=== PATIENT | male | born 1960 | race Caucasian/White ===

== ENCOUNTER 2020-12-23 10:48 | Emergency (ER) | payer BC ==
[~2020-12-23] VITALS: Ht 188 cm; Wt 99.8 kg
--- NOTE | 2020-12-23 11:00 | NUR ---
Patient came in to the er c/o r leg pain, redness, and swelling x 2 days 10/10 pain scale. On room air, breaething evenly and unlabored. Kept comfortable, will continue to monitor accordingly.
[2020-12-23] MEDS ORDERED: SULF1TAB48 PO (11:08)
[2020-12-23] MEDS ORDERED: CEPH500C2 PO (11:08)
[2020-12-23] MEDS: SILVER SULFADIAZINE CREAM 25 GM TUBE TP ONE (11:11)
[2020-12-23] MEDS ORDERED: SILVER SULFADIAZINE CREAM 25 GM TUBE ONE (11:11)
[2020-12-23] MEDS ORDERED: TDAP [DIPH/PERTUSSIS/TET] 0.5 ML VIAL IM ONE (11:12)
[2020-12-23] MEDS ORDERED: AMLO1CAP PO (11:15)
[2020-12-23] MEDS ORDERED: CARV6.252 PO (11:15)
[2020-12-23] MEDS: TDAP [DIPH/PERTUSSIS/TET] 0.5 ML VIAL IM ONE (11:15)
[2020-12-23] MEDS ORDERED: OMEG-167 PO (11:15)
[2020-12-23] MEDS ORDERED: FLUO20CA42 PO (11:15)
[2020-12-23] MEDS ORDERED: EMTR1TAB17 PO (11:15)
[2020-12-23 11:47] VITALS: BP 131/56
--- NOTE | 2020-12-23 11:47 | NUR ---
Patient discharged to home in stable condition. Written and verbal after care instructions given. Patient verbalizes understanding of instruction.
[2020-12-30] MEDS ORDERED: DOXY100C2 PO (14:01)
[2020-12-30] MEDS ORDERED: AMOX-430 PO (14:01)
== END 2020-12-23 11:47 | disposition home or self-care (01) ==
LOC: ER 10:54
DX: T81.49XA Infection following a procedure, other surgical site, initial encounter (principal); M79.604 Pain in right leg; R22.41 Localized swelling, mass and lump, right lower limb; I10 Essential (primary) hypertension; E78.5 Hyperlipidemia, unspecified; F32.9 Major depressive disorder, single episode, unspecified
CPT/HCPCS: 73590-TC; 87070-TC; 90715

== ENCOUNTER 2020-12-24 09:45 | Inpatient (IN) | payer BC ==
[~2020-12-24] VITALS: Ht 188 cm; Wt 99.8 kg
[~2020-12-24 09:45] MED LIST: AMLO1CAP PO; CARV6.252 PO; CEPH500C2 PO; EMTR1TAB17 PO; FLUO20CA42 PO; OMEG-167 PO; SULF1TAB48 PO
--- NOTE | 2020-12-24 09:50 | NUR ---
AMBULATED TO BED 1 WITH CRUTCHES FOR MD MEDINA
--- NOTE | 2020-12-24 09:51 | NUR ---
BIB SELF W CRUTCHES C/O WORSENING R LOWER LEG LACERATION & REDNESS X4 DAYS. PT CAME IN YESTERDAY AND THE PAIN AND REDNESS HAVE WORSENED. PAIN IS 4/10 AT REST AND 10/10 ON AMBULATION. PT CAME TO THE ER AND STARTED BACTRIM AND KEFLEX YESTERDAY. DENIES FEVER, N/V. A&OX4, AMBULATORY W CRUTCHES, REDNESS FROM R ANKLE TO BELOW THE KNEE, WORSE IN THE MIDDLE OF THE LEG. R LEG IS WARM.
--- NOTE | 2020-12-24 09:57 | NUR ---
DR DUVAL AT BEDSIDE
--- NOTE | 2020-12-24 10:15 | NUR ---
BLOOD SAMPLE OBTAINED AND SENT TO LAB
--- NOTE | 2020-12-24 10:16 | NUR ---
radiology at bedside
--- NOTE | 2020-12-24 10:19 | NUR ---
DIRECTOR CLINICAL PHARMACOLOGY AT BEDSIDE
--- NOTE | 2020-12-24 10:25 | NUR ---
covid swab done and sent to the lab
[2020-12-24] MEDS ORDERED: ONDANSETRON HCL/PF 4 MG/2 ML VIAL ONE (10:26)
[2020-12-24] MEDS ORDERED: MORPHINE SULFATE INJ 4 MG/ML DISP.SYRIN ONE (10:27)
[2020-12-24] MEDS ORDERED: CEFTRIAXONE 1 G in IV D5W 50 ML IV ONE (10:30)
[2020-12-24] MEDS ORDERED: ONDANSETRON HCL/PF 4 MG/2 ML VIAL IV ONE (10:30)
[2020-12-24] MEDS ORDERED: MORPHINE SULFATE INJ 2 MG/ML DISP.SYRIN IV ONE (10:30)
[2020-12-24] MEDS ORDERED: VANCOMYCIN 1 GM in IV D5W 250 ML IV ONE (10:30)
[2020-12-24 10:37] LABS: BASOPHILS # (AUTO) 0.1 K/uL (0.0-0.2); BASOPHILS % (AUTO) 0.3 % (0.0-2.0); EOSINOPHILS % (AUTO) 0.2 % (0.0-6.0); HEMATOCRIT 40 % (39-51); HEMOGLOBIN 13.8 g/dL (13.5-17.5); LYMPHOCYTES # (AUTO) 0.8 K/uL (0.8-4.8); LYMPHOCYTES % (AUTO) 3.4 % (20.0-44.0); MEAN CORPUSCULAR HGB CONC 34 g/dl (31.0-36.0); MEAN CORPUSCULAR VOLUME 93 fL (80-96); MONOCYTES # (AUTO) 1.3 K/uL (0.1-1.30); MONOCYTES % (AUTO) 5.3 % (2.0-12.0); NEUTROPHILS # (AUTO) 22.1 K/uL (1.8-8.9); NEUTROPHILS % (AUTO) 90.8 % (43.0-81.0); PLATELET COUNT (AUTO) 157 K/uL (150-450); RED BLOOD CELL COUNT(AUTO) 4.31 MIL/uL (4.5-6.0); WHITE BLOOD COUNT (AUTO) 24.3 K/uL (4.3-11.0)
[2020-12-24 11:00] LABS: CALCIUM, SERUM 8.8 mg/dL (8.5-10.1); CREATININE 1.9 mg/dL (0.6-1.3)
--- NOTE | 2020-12-24 11:49 | NUR ---
ULTRASOUND BEING DONE AT BEDSIDE
--- NOTE | 2020-12-24 12:29 | NUR ---
ROOM 306-2 GUY MORAN
--- NOTE | 2020-12-24 13:38 | NUR ---
report given to Samara TOVAR for archie.
[2020-12-24 13:45] VITALS: BP 103/64
--- NOTE | 2020-12-24 13:45 | NUR ---
MS MAIL WEIGHER NOTE PT TRANSPORTED VIA GURNEY TO UNIT AT THIS TIME. PT ADMITTED TO [facility] UNIT FROM ER UNDER SOLAR PHOTOVOLTAIC CREW LEAD ERIC FOR ADMITTING DX OF CELLULITIS. A/O X4. PT IS STABLE ON ROOM AIR WITH NO SOB OR S/S OF RESPIRATORY DISTRESS NOTED. PT HAS NO C/O PAIN OR DISCOMFORT AT THIS TIME. IV ACCESS IS IN RAC #20, INTACT AND PATENT. PHOTO TAKEN OF RIGHT LOWER LEG ERYTHEMA AND SWELLING AND FILED IN CHART. PT ORIENTED TO STAFF, ROOM, AND UNIT. SAFETY PRECAUTIONS MAINTAINED. BED IN LOWEST LOCKED POSITION, HOB ELEVATED, SIDE RAILS UP X2. CALL LIGHT AND TABLE WITHIN REACH. WILL CONTINUE TO MONITOR.
[2020-12-24 14:05] VITALS: BP 105/63
[2020-12-24] MEDS ORDERED: MAG HYDROX/AL HYDROX/SIMETH 30 ML UDC PO PRN (14:30)
[2020-12-24] MEDS ORDERED: ZOLPIDEM TARTRATE 5 MG TABLET PO PRN (14:30)
[2020-12-24] MEDS ORDERED: ONDANSETRON HCL/PF 4 MG/2 ML VIAL IVP PRN (14:30)
[2020-12-24] MEDS ORDERED: MAGNESIUM HYDROXIDE 30 ML UDC PO PRN (14:30)
[2020-12-24] MEDS ORDERED: ACETAMINOPHEN 325 MG TABLET PO PRN (14:30)
[2020-12-24] MEDS ORDERED: Z GUARD REMEDY 2 OZ OINT TP PRN (14:30)
[2020-12-24] MEDS: IV NS 0.9% 1,000 ML IV PRN (15:54)
[2020-12-24 16:00] VITALS: BP 103/64
[2020-12-24 16:52] LABS: BAND % (MANUAL) 6 % (0.0-5.0); EOSINOPHILS % (MANUAL) 1 % (0-4); LYMPHOCYTES % (MANUAL) 6 % (16-48); MONOCYTES % (MANUAL) 3 % (0-11.0); NEUTROPHILS % (MANUAL) 84 (42-76)
[2020-12-24] MEDS ORDERED: Medication Not On Formulary EA (Omega-3 Fatty Acids/Fish Oil (Fish Oil 1,000 Mg Softgel) PO SCH (17:00)
[2020-12-24] MEDS: CARVEDILOL 6.25 MG TABLET PO SCH (17:00)
--- NOTE | 2020-12-24 18:00 | NUR ---
RN NOTE URINE SPECIMEN COLLECTED AND PLACED IN REFRIGERATOR. NOTIFIED LAB OF ASSOCIATE DIRECTOR OF BIOSTATISTICS.
[2020-12-24] MEDS ORDERED: POTASSIUM CHLORIDE 20 MEQ TAB.PRT.SR PO ONE (18:30)
--- NOTE | 2020-12-24 18:38 | NUR ---
MS RN CLOSING NOTE PT IS AWAKE IN BED. A/O X4. PT IS STABLE ON ROOM AIR WITH NO SOB OR S/S OF RESPIRATORY DISTRESS NOTED. PT HAS NO C/O PAIN OR DISCOMFORT AT THIS TIME. IV ACCESS IS IN RAC #20 INFUSING NS AT 100 ML/HR, INTACT AND PATENT. ALL NEEDS HAVE BEEN MET. SAFETY PRECAUTIONS MAINTAINED AT ALL TIMES. BED IN LOWEST LOCKED POSITION, HOB ELEVATED, SIDE RAILS UP X2. CALL LIGHT AND TABLE WITHIN REACH. WILL ENDORSE TO ONCOMING NURSE FOR JAREK.
--- NOTE | 2020-12-24 19:00 | NUR ---
MS RN OPENING NOTE RECEIVED PT IN BED, RESTING. A/O X4. PT IS ON ROOM AIR, NO SOB OR RESPIRATORY DISTRESS NOTED, NO C/O PAIN AT THIS TIME. RESPIRATIONS EVEN AND UNLABORED. IV ACCESS NOTED IN RIGHT AC G#20 INTACT, PATENT AND FLUSHING WELL, NS INFUSING AT 100ML/HR. FALL AND SAFETY MEASURES IN PLACE AND MAINTAINED AT ALL TIMES. BED ALARM, BED IN LOW AND LOCKED POSITION, HOB ELEVATED TO SEMI FOWLERS POSITION, CALL LIGHT AND TABLE WITHIN REACH. SIDE RAILS UP X2. WILL CONTINUE WITH PLAN OF CARE.
[2020-12-24 20:01] VITALS: BP 108/69
[2020-12-25] MEDS: HYDROCODONE/APAP 5/325MG TABLET PO PRN (01:20)
[2020-12-25 03:36] LABS: BILIRUBIN,URINE SMALL (NEGATIVE); COLOR,URINE DARK YELLOW (YELLOW); LEUKOCYTE ESTERASE ,URINE NEGATIVE (NEGATIVE); NITRITE, URINE NEGATIVE (NEGATIVE); PROTEIN,URINE 30 mg/dl (NEGATIVE); UGLUCOSE NEGATIVE (NEGATIVE); UROBILINOGEN,URINE 0.2 EU/dL (0.2)
[2020-12-25 04:00] LABS: RBC,URINE 0-2 /HPF (0-2); WBC,URINE 0-2 /HPF (0-3)
[2020-12-25 04:01] LABS: BACTERIA,URINE Few /HPF (None Seen); SQUAMOUS EPITHELIAL CELL,UR Few /HPF (None Seen); URINE AMORPHOUS URATE Many /HPF (None Seen)
[2020-12-25] MEDS ORDERED: VANCOMYCIN 1.25 GM in IV D5W 250 ML IV SCH (05:00)
--- NOTE | 2020-12-25 06:29 | NUR ---
MS RN CLOSING NOTE PT RESTING IN BED COMFORTABLY AT THIS TIME, EASY TO AROUSE. PT REMAINED STABLE THROUGHOUT SHIFT.ALL NEEDS, MEDICATIONS, AND CARE ADMINISTERED ANTICIPATED PER ORDER. SAFETY PRECAUTIONS IN PLACE AND MAINTAINED AT ALL TIMES. BED IN LOWEST, LOCKED POSITION, HOB ELEVATED, SIDE RAILS UP X2. CALL LIGHT AND TABLE WITHIN REACH. WILL ENDORSE TO ONCOMING NURSE FOR JAREK.
[2020-12-25 06:34] LABS: BASOPHILS % (AUTO) 0.1 % (0.0-2.0); EOSINOPHILS % (AUTO) 0.2 % (0.0-6.0); HEMATOCRIT 37 % (39-51); HEMOGLOBIN 12.6 g/dL (13.5-17.5); LYMPHOCYTES # (AUTO) 1.1 K/uL (0.8-4.8); LYMPHOCYTES % (AUTO) 6.9 % (20.0-44.0); MEAN CORPUSCULAR HGB CONC 34 g/dl (31.0-36.0); MEAN CORPUSCULAR VOLUME 95 fL (80-96); MONOCYTES # (AUTO) 1.5 K/uL (0.1-1.30); MONOCYTES % (AUTO) 9.4 % (2.0-12.0); NEUTROPHILS # (AUTO) 13.6 K/uL (1.8-8.9); NEUTROPHILS % (AUTO) 83.4 % (43.0-81.0); PLATELET COUNT (AUTO) 144 K/uL (150-450); RED BLOOD CELL COUNT(AUTO) 3.89 MIL/uL (4.5-6.0); WHITE BLOOD COUNT (AUTO) 16.3 K/uL (4.3-11.0)
[2020-12-25 06:38] LABS: CALCIUM, SERUM 8.7 mg/dL (8.5-10.1); CREATININE 1.2 mg/dL (0.6-1.3); MAGNESIUM 1.9 mg/dL (1.8-2.4); POTASSIUM 3.3 mmol/L (3.5-5.1)
--- NOTE | 2020-12-25 07:34 | NUR ---
MS RN OPENING NOTE RECEIVED PT IN BED, RESTING. A/O X4. PT IS ON ROOM AIR, I NO APPARENT RESPIRATORY DISTRESS NOTED, BREATHING EVEN AND UNLABORED. NO C/O PAIN AT THIS TIME. RESPIRATIONS EVEN AND UNLABORED. IV ACCESS NOTED IN RIGHT AC G#20 INTACT, PATENT AND FLUSHING WELL, NS INFUSING WELL AT 100ML/HR. FALL AND SAFETY MEASURES IN PLACE AND MAINTAINED AT ALL TIMES. BED ALARM, BED IN LOW AND LOCKED POSITION, HOB ELEVATED TO SEMI FOWLERS POSITION, CALL LIGHT AND TABLE WITHIN REACH. SIDE RAILS UP X2. WILL CONTINUE WITH PLAN OF CARE.
[2020-12-25 08:00] VITALS: BP 120/78
[2020-12-25] MEDS: CARVEDILOL 6.25 MG TABLET PO SCH ×2 (08:34→17:00)
[2020-12-25] MEDS: AMLODIPINE BESYLATE 10 MG TABLET PO SCH (08:34)
[2020-12-25] MEDS: FLUOXETINE HCL 20 MG CAPSULE PO SCH (08:34)
[2020-12-25] MEDS: BENAZEPRIL HCL 20 MG TABLET PO SCH (08:35)
[2020-12-25] MEDS ORDERED: Medication Not On Formulary EA (Amlodipine Besylate/Benazepril (Lotrel 10-20 Mg Capsule) PO SCH (09:00)
[2020-12-25] MEDS ORDERED: Medication Not On Formulary EA (Emtricitabine/Tenofov Alafenam (Descovy 200-25 mg Tablet PO SCH (09:00)
[2020-12-25] MEDS ORDERED: POTASSIUM CHLORIDE 20 MEQ TAB.PRT.SR PO SCH (10:30)
[2020-12-25] MEDS: MORPHINE SULFATE INJ 2 MG/ML DISP.SYRIN IV PRN ×2 (11:36→20:29)
[2020-12-25] MEDS: IV NS 0.9% 1,000 ML IV PRN (15:56)
[2020-12-25 16:00] VITALS: BP 94/60
[2020-12-25] MEDS: VANCOMYCIN 1.25 GM in IV D5W 250 ML IV SCH (18:17)
--- NOTE | 2020-12-25 18:36 | NUR ---
MS RN CLOSING NOTE RECEIVED PT IN BED, RESTING. A/O X4. PT IS ON ROOM AIR, IN NO APPARENT RESPIRATORY DISTRESS NOTED, BREATHING EVEN AND UNLABORED. NO C/O PAIN AT THIS TIME. RESPIRATIONS EVEN AND UNLABORED. IV ACCESS NOTED IN RIGHT AC G#20 INTACT, PATENT AND FLUSHING WELL, NS INFUSING WELL AT 100ML/HR. FALL AND SAFETY MEASURES IN PLACE AND MAINTAINED AT ALL TIMES. BED ALARM, BED IN LOW AND LOCKED POSITION, HOB ELEVATED TO SEMI FOWLERS POSITION, CALL LIGHT AND TABLE WITHIN REACH. SIDE RAILS UP X2. WILL ENDORSED PT. TO GRADER TENDER NURSE.
--- NOTE | 2020-12-25 19:15 | NUR ---
MS RN NOTES RECEIVED ON LAYING ON BED,BREATHING REGULAR,NOT IN ANY FORM DISTRESS,NOTED REDNESS ON RIGHT LOWER LEG,WARM TO THE TOUCH,ELEVATED ON 2 PILLOWS.PAIN TOLERABLE AT THE MOMENT,AMBULATE TO THE TOILET WITH WALKER,PRESENT IVF NS AT 100ML/HR RATE INFUSING WELL ON RIGHT AC SALINE LOCK.CALL LIGHT IN REACH,NEEDS ANTICIPATED.
[2020-12-25 20:00] VITALS: BP 111/63
--- NOTE | 2020-12-25 20:29 | NUR ---
MS RN NOTES PAIN MANAGEMENT C/O PAIN 8/10 ON RIGHT LOWER LEG,MORPHINE 2MG IV GIVEN ORDERED.
--- NOTE | 2020-12-25 21:00 | NUR ---
MS RN NOTES REFUSED IVF THIS TIME,SAYS IT KEEPS HIM GOING BACK AND FORT TO THE RESTROOM.
[2020-12-26 06:19] LABS: BASOPHILS % (AUTO) 0.2 % (0.0-2.0); EOSINOPHILS % (AUTO) 0.6 % (0.0-6.0); HEMATOCRIT 36 % (39-51); LYMPHOCYTES # (AUTO) 1.3 K/uL (0.8-4.8); LYMPHOCYTES % (AUTO) 10.3 % (20.0-44.0); MEAN CORPUSCULAR HGB CONC 34 g/dl (31.0-36.0); MEAN CORPUSCULAR VOLUME 95 fL (80-96); MONOCYTES # (AUTO) 1.6 K/uL (0.1-1.30); NEUTROPHILS # (AUTO) 9.5 K/uL (1.8-8.9); NEUTROPHILS % (AUTO) 75.9 % (43.0-81.0); PLATELET COUNT (AUTO) 164 K/uL (150-450); RED BLOOD CELL COUNT(AUTO) 3.76 MIL/uL (4.5-6.0); WHITE BLOOD COUNT (AUTO) 12.5 K/uL (4.3-11.0)
[2020-12-26 06:56] LABS: CALCIUM, SERUM 8.4 mg/dL (8.5-10.1); MAGNESIUM 1.8 mg/dL (1.8-2.4); POTASSIUM 3.1 mmol/L (3.5-5.1)
--- NOTE | 2020-12-26 07:21 | NUR ---
MS RN NOTES VANCOMYCIN TROUGH 8,WILL ADMINISTER DOSE
[2020-12-26] MEDS: VANCOMYCIN 1.25 GM in IV D5W 250 ML IV SCH (07:24)
--- NOTE | 2020-12-26 07:41 | NUR ---
MS RN OPENING NOTES RECEIVED PATIENT AWAKE IN BED, ALERT AND ORIENTED X 4. NO SOB. NO S/S OF DISTRESSED NOTED. BREATHING IS EVEN AND UNLABORED. IV ACCESS RAC#20 PATENT AND INTACT. SAFETY MEASURES IN PLACE WITH BED LOCKED AT LOWEST POSITION AND SIDE RAILS UP X 2. CALL LIGHT WITHIN REACH. WILL CONTINUE TO MONITOR THROUGHOUT SHIFT.
[2020-12-26 08:00] VITALS: BP 114/84
[2020-12-26] MEDS: AMLODIPINE BESYLATE 10 MG TABLET PO SCH (08:32)
[2020-12-26] MEDS: BENAZEPRIL HCL 20 MG TABLET PO SCH (08:33)
[2020-12-26] MEDS: CARVEDILOL 6.25 MG TABLET PO SCH ×3 (08:33→16:16)
[2020-12-26] MEDS: FLUOXETINE HCL 20 MG CAPSULE PO SCH (08:33)
[2020-12-26] MEDS: POTASSIUM CHLORIDE 20 MEQ TAB.PRT.SR PO SCH ×2 (10:42→11:29)
[2020-12-26] MEDS: HYDROCODONE/APAP 5/325MG TABLET PO PRN ×4 (11:43→20:25)
[2020-12-26] MEDS ORDERED: POTASSIUM CHLORIDE 20 MEQ TAB.PRT.SR PO ONE ×2 (12:30→14:00)
--- NOTE | 2020-12-26 13:54 | NUR ---
PILE FABRIC KNITTER PATIENT CURRENTLY OUT FOR MRI
[2020-12-26 16:00] VITALS: BP_SYST 109; BP_SYST 136; BP_DIAS 67; BP_DIAS 70
[2020-12-26] MEDS: ZOSYN IVPB 3.375 G in IV D5W 50ml IV SCH ×2 (16:59→23:04)
[2020-12-26] MEDS: ENOXAPARIN SODIUM 40 MG/0.4 ML DISP.SYRIN SQ SCH (17:37)
[2020-12-26] MEDS: CLINDAMYCIN 900 MG in IV D5W 50 ML IV SCH (17:43)
--- NOTE | 2020-12-26 18:54 | NUR ---
MS RN CLOSING NOTES PATIENT AWAKE IN BED. NO SOB. NO S/S OF DISTRESS NOTED. BREATHING IS EVEN AND UNLABORED. R IV ACCESS WAS LEAKING; REMOVED; AND INSERTED A LAC#20 THAT IS PATENT, INTACT, AND FLUSHING WELL. SAFETY MEASURES IN PLACE WITH BED LOCKED AT LOWEST POSITION AND SIDE RAILS UP X 2. CALL LIGHT WITHIN REACH. WILL ENDORSE TO ONCOMING SHIFT
--- NOTE | 2020-12-26 19:40 | NUR ---
RN NOTES Received patient awake on his bed, a/ox4, ambulate with crutches, with right leg cellulitis, pain is tolerable at this time, no SOB< call light within reach, siderailsupx2, will continue to monitor
[2020-12-26 20:00] VITALS: BP 104/73
--- NOTE | 2020-12-26 20:29 | NUR ---
RN NOTES Patient complained of tight leg pain- NOrco 1 tab po givne as ordered, V/S stable
[2020-12-27] MEDS: HYDROCODONE/APAP 5/325MG TABLET PO PRN ×5 (00:09→20:02)
--- NOTE | 2020-12-27 00:10 | NUR ---
RN NOTES complained of right leg pain- [place] 5/325 mg po given as ordered, V/S stable
[2020-12-27] MEDS: CLINDAMYCIN 900 MG in IV D5W 50 ML IV SCH ×3 (01:57→18:35)
[2020-12-27] MEDS: ZOSYN IVPB 3.375 G in IV D5W 50ml IV SCH ×4 (05:13→23:05)
--- NOTE | 2020-12-27 06:26 | NUR ---
RN NOTES awake denies pain, no SOB< morning care rendered, call light within reach, siderailsupx2, pt. needs attended
[2020-12-27 06:44] LABS: CALCIUM, SERUM 8.4 mg/dL (8.5-10.1); CREATININE 0.8 mg/dL (0.6-1.3); MAGNESIUM 1.7 mg/dL (1.8-2.4); POTASSIUM 3.5 mmol/L (3.5-5.1)
[2020-12-27 06:47] LABS: BASOPHILS % (AUTO) 0.3 % (0.0-2.0); EOSINOPHILS % (AUTO) 0.8 % (0.0-6.0); HEMATOCRIT 36 % (39-51); HEMOGLOBIN 12.3 g/dL (13.5-17.5); LYMPHOCYTES # (AUTO) 2.6 K/uL (0.8-4.8); LYMPHOCYTES % (AUTO) 24.1 % (20.0-44.0); MEAN CORPUSCULAR HGB CONC 35 g/dl (31.0-36.0); MEAN CORPUSCULAR VOLUME 94 fL (80-96); MONOCYTES # (AUTO) 1.8 K/uL (0.1-1.30); MONOCYTES % (AUTO) 16.4 % (2.0-12.0); NEUTROPHILS # (AUTO) 6.3 K/uL (1.8-8.9); NEUTROPHILS % (AUTO) 58.4 % (43.0-81.0); PLATELET COUNT (AUTO) 231 K/uL (150-450); RED BLOOD CELL COUNT(AUTO) 3.77 MIL/uL (4.5-6.0); WHITE BLOOD COUNT (AUTO) 10.7 K/uL (4.3-11.0)
--- NOTE | 2020-12-27 07:53 | NUR ---
MS RN OPENING NOTES RECEIVED PATIENT WHILE ASLEEP IN BED, NO SOB. NO S/S OF DISTRESS NOTED. BREATHING IS EVEN AND UNLABORED. IV ACCESS LAC#20 PATENT AND INTACT. SAFETY MEASURES IN PLACE WITH BED LOCKED AT LOWEST POSITION AND SIDE RAILS UP X 2. CALL LIGHT IS WITHIN REACH. WILL CONTINUE TO MONITOR THROUGHOUT TODAYS SHIFT.
[2020-12-27 08:11] VITALS: BP 124/89
[2020-12-27] MEDS: CARVEDILOL 6.25 MG TABLET PO SCH ×2 (09:03→17:20)
[2020-12-27] MEDS: BENAZEPRIL HCL 20 MG TABLET PO SCH (09:03)
[2020-12-27] MEDS: FLUOXETINE HCL 20 MG CAPSULE PO SCH (09:03)
[2020-12-27] MEDS: AMLODIPINE BESYLATE 10 MG TABLET PO SCH (09:04)
[2020-12-27] MEDS ORDERED: MAGNESIUM OXIDE 400 MG TABLET PO ONE (09:30)
[2020-12-27] MEDS ORDERED: CT SWABBABLE VALVE TRANS SET 1 EA INFUS.SET MC ONE (10:33)
[2020-12-27] MEDS ORDERED: IOHEXOL-350 100 ML VIAL IV ONE (10:33)
[2020-12-27] MEDS ORDERED: IV NS 0.9% 250 ML IV ONE (10:33)
--- NOTE | 2020-12-27 10:41 | NUR ---
MS/RN NOTES- CTA PATIENT IS ALERT AND ORIENTED X4, ABLE TO MAKE NEEDS KNOWN. WAS PICKED UP BY STAFF TO DO CTA ABD. AORTA WITH RUN OFF.
[2020-12-27 10:55] LABS: EOSINOPHILS % (MANUAL) 2 % (0-4); LYMPHOCYTES % (MANUAL) 26 % (16-48); MONOCYTES % (MANUAL) 14 % (0-11.0); NEUTROPHILS % (MANUAL) 58 (42-76)
[2020-12-27 16:00] VITALS: BP 114/80
[2020-12-27] MEDS: ENOXAPARIN SODIUM 40 MG/0.4 ML DISP.SYRIN SQ SCH (17:26)
--- NOTE | 2020-12-27 19:30 | NUR ---
RN NOTES RECEIVED PATIENT WHILE ASLEEP IN BED, NO SOB. NO S/S OF DISTRESS NOTED. BREATHING IS EVEN AND UNLABORED. IV ACCESS LAC#20 PATENT AND INTACT. SAFETY MEASURES IN PLACE WITH BED LOCKED AT LOWEST POSITION AND SIDE RAILS UP X 2. CALL LIGHT IS WITHIN REACH. WILL CONTINUE TO MONITOR.
[2020-12-27 20:00] VITALS: BP 125/82
--- NOTE | 2020-12-27 20:07 | NUR ---
RN NOTES PT REPORTING 7/10 PAIN ON A NUMERIC PAIN SCALE PRN NORCO GIVEN AND TOLERATED WELL WILL CONTINUE TO MONITOR.
[2020-12-28] MEDS: CLINDAMYCIN 900 MG in IV D5W 50 ML IV SCH ×3 (02:32→18:05)
[2020-12-28] MEDS: HYDROCODONE/APAP 5/325MG TABLET PO PRN ×2 (02:55→18:04)
[2020-12-28] MEDS: ZOSYN IVPB 3.375 G in IV D5W 50ml IV SCH ×4 (05:58→23:10)
[2020-12-28 06:25] LABS: BASOPHILS % (AUTO) 0.4 % (0.0-2.0); EOSINOPHILS % (AUTO) 1.1 % (0.0-6.0); HEMATOCRIT 37 % (39-51); HEMOGLOBIN 12.5 g/dL (13.5-17.5); LYMPHOCYTES # (AUTO) 1.8 K/uL (0.8-4.8); LYMPHOCYTES % (AUTO) 20.6 % (20.0-44.0); MEAN CORPUSCULAR HGB CONC 34 g/dl (31.0-36.0); MEAN CORPUSCULAR VOLUME 95 fL (80-96); MONOCYTES # (AUTO) 1.3 K/uL (0.1-1.30); MONOCYTES % (AUTO) 14.4 % (2.0-12.0); NEUTROPHILS # (AUTO) 5.6 K/uL (1.8-8.9); NEUTROPHILS % (AUTO) 63.5 % (43.0-81.0); PLATELET COUNT (AUTO) 301 K/uL (150-450); RED BLOOD CELL COUNT(AUTO) 3.88 MIL/uL (4.5-6.0); WHITE BLOOD COUNT (AUTO) 8.8 K/uL (4.3-11.0)
--- NOTE | 2020-12-28 06:26 | NUR ---
RN NOTES PATIENT WHILE ASLEEP IN BED, NO SOB. NO S/S OF DISTRESS NOTED. BREATHING IS EVEN AND UNLABORED. IV ACCESS R WRIST 20G PATENT AND INTACT. SAFETY MEASURES IN PLACE WITH BED LOCKED AT LOWEST POSITION AND SIDE RAILS UP X 2. CALL LIGHT IS WITHIN REACH. WILL CONTINUE TO MONITOR.
[2020-12-28 06:56] LABS: CALCIUM, SERUM 8.6 mg/dL (8.5-10.1); MAGNESIUM 2.1 mg/dL (1.8-2.4); POTASSIUM 3.8 mmol/L (3.5-5.1)
[2020-12-28 08:00] VITALS: BP 110/75
[2020-12-28] MEDS: BENAZEPRIL HCL 20 MG TABLET PO SCH (09:00)
[2020-12-28] MEDS: AMLODIPINE BESYLATE 10 MG TABLET PO SCH (09:00)
[2020-12-28] MEDS: CARVEDILOL 6.25 MG TABLET PO SCH ×2 (09:23→17:08)
[2020-12-28] MEDS: FLUOXETINE HCL 20 MG CAPSULE PO SCH (09:23)
[2020-12-28 16:00] VITALS: BP 129/83
[2020-12-28] MEDS: ENOXAPARIN SODIUM 40 MG/0.4 ML DISP.SYRIN SQ SCH (17:09)
--- NOTE | 2020-12-28 18:00 | NUR ---
received pt in am alert and oriented x4.little c/o pain,medicated x1 with norco for rt. leg pain.tolerating antibiotics.
--- NOTE | 2020-12-28 19:41 | NUR ---
MS RN NOTES PATIENT RECEIVED IN BED, A/O X4 NO SOB. NO S/S OF DISTRESS NOTED. BREATHING IS EVEN AND UNLABORED. IV ACCESS R WRIST 20G PATENT AND INTACT. SAFETY MEASURES IN PLACE WITH BED LOCKED AT LOWEST POSITION AND SIDE RAILS UP X 2. CALL LIGHT IS WITHIN REACH. WILL CONTINUE TO MONITOR.
[2020-12-28 20:00] VITALS: BP 110/69
[2020-12-29] MEDS: HYDROCODONE/APAP 5/325MG TABLET PO PRN ×2 (01:05→18:02)
--- NOTE | 2020-12-29 01:18 | NUR ---
MS RN NOTES PT REQUESTED NORCO FOR PAIN PROVIDED TOLERATED WELL WILL CONTINUE TO MONITOR.
[2020-12-29] MEDS: CLINDAMYCIN 900 MG in IV D5W 50 ML IV SCH ×3 (01:55→17:55)
[2020-12-29] MEDS: ZOSYN IVPB 3.375 G in IV D5W 50ml IV SCH ×4 (05:13→22:11)
[2020-12-29 06:28] LABS: CALCIUM, SERUM 8.2 mg/dL (8.5-10.1); MAGNESIUM 2.1 mg/dL (1.8-2.4); POTASSIUM 3.6 mmol/L (3.5-5.1)
[2020-12-29 06:29] LABS: BASOPHILS % (AUTO) 0.5 % (0.0-2.0); EOSINOPHILS % (AUTO) 1.8 % (0.0-6.0); HEMATOCRIT 36 % (39-51); HEMOGLOBIN 12.2 g/dL (13.5-17.5); LYMPHOCYTES % (AUTO) 23.9 % (20.0-44.0); MEAN CORPUSCULAR HGB CONC 34 g/dl (31.0-36.0); MEAN CORPUSCULAR VOLUME 95 fL (80-96); MONOCYTES # (AUTO) 1.1 K/uL (0.1-1.30); MONOCYTES % (AUTO) 12.7 % (2.0-12.0); NEUTROPHILS # (AUTO) 5.2 K/uL (1.8-8.9); NEUTROPHILS % (AUTO) 61.1 % (43.0-81.0); PLATELET COUNT (AUTO) 386 K/uL (150-450); RED BLOOD CELL COUNT(AUTO) 3.83 MIL/uL (4.5-6.0); WHITE BLOOD COUNT (AUTO) 8.5 K/uL (4.3-11.0)
--- NOTE | 2020-12-29 06:30 | NUR ---
MS RN NOTES PATIENT IN BED, A/O X4 NO SOB. NO S/S OF DISTRESS NOTED. BREATHING IS EVEN AND UNLABORED. IV ACCESS R WRIST 20G PATENT AND INTACT. SAFETY MEASURES IN PLACE WITH BED LOCKED AT LOWEST POSITION AND SIDE RAILS UP X 2. CALL LIGHT IS WITHIN REACH. ALL NEEDS MET. ALL DUE MEDS GIVEN AND TOLERATED WELL. WILL ENDORSE CARE TO DAY SHIFT NURSE.
--- NOTE | 2020-12-29 07:48 | NUR ---
MS RN OPENING NOTES RECEIVED PATIENT IN BED, AWAKE A/O X4, VERBALLY RESPONSIVE, NO SIGNS OF ACUTE DISTRESS NOTED. ON ROOM AIR, BREATHING EVEN AND UNLABORED. SL ON RIGHT WRIST G#20 PATENT AND INTACT. NO C/O PAIN OR DISCOMFORT AT THIS TIME. SAFETY MEASURES PROVIDED. BED LOCKED AND IN LOWEST POSITION, SR UP X2, CALL LIGHT AND TABLE PLACED WITHIN EASY REACH. WILL CONTINUE TO MONITOR.
[2020-12-29] MEDS: FLUOXETINE HCL 20 MG CAPSULE PO SCH (08:29)
[2020-12-29] MEDS: BENAZEPRIL HCL 20 MG TABLET PO SCH (08:29)
[2020-12-29] MEDS: CARVEDILOL 6.25 MG TABLET PO SCH ×2 (08:30→17:00)
[2020-12-29] MEDS: AMLODIPINE BESYLATE 10 MG TABLET PO SCH (08:30)
[2020-12-29 10:17] VITALS: BP 124/89
[2020-12-29 16:00] VITALS: BP 104/74
[2020-12-29] MEDS: ENOXAPARIN SODIUM 40 MG/0.4 ML DISP.SYRIN SQ SCH (17:02)
[2020-12-29 17:55] LABS: EOSINOPHILS % (MANUAL) 1 % (0-4); LYMPHOCYTES % (MANUAL) 30 % (16-48); MONOCYTES % (MANUAL) 12 % (0-11.0); NEUTROPHILS % (MANUAL) 57 (42-76)
--- NOTE | 2020-12-29 18:26 | NUR ---
MS RN CLOSING NOTES PATIENT IN BED, AWAKE, A/O X4, VERBALLY RESPONSIVE, NO SIGNS OF ACUTE DISTRESS NOTED. REMAINS ON ROOM AIR, BREATHING EVEN AND UNLABORED. SL ON RIGHT WRIST G#20 PATENT AND INTACT. IV ABX GIVEN, NO A/R NOTED. ALL DUE MEDS GIVEN, TOLERATED WELL. NORCO 3/325MG GIVEN @1800 FOR C/O 6/10 PAIN ON RIGHT LEG. NOTED EFFECTIVE. SAFETY MEASURES PROVIDED. BED LOCKED AND IN LOWEST POSITION, SR UP X2, CALL LIGHT AND TABLE PLACED WITHIN EASY REACH. WILL ENDORSE TO NEXT SHIFT.
--- NOTE | 2020-12-29 19:15 | NUR ---
RN MS NOTES PATIENT IN BED, AWAKE, A/O X4, VERBALLY RESPONSIVE, NO SIGNS OF ACUTE DISTRESS NOTED. REMAINS ON ROOM AIR, BREATHING EVEN AND UNLABORED. SL ON RIGHT WRIST G#20 PATENT AND INTACT.SAFETY MEASURES PROVIDED. BED LOCKED AND IN LOWEST POSITION, SR UP X2, CALL LIGHT AND TABLE PLACED WITHIN EASY REACH. WILL CONTINUE TO MONITOR.
[2020-12-29 20:00] VITALS: BP 108/65
[2020-12-30] MEDS: CLINDAMYCIN 900 MG in IV D5W 50 ML IV SCH ×2 (02:18→09:11)
[2020-12-30] MEDS: ZOSYN IVPB 3.375 G in IV D5W 50ml IV SCH ×2 (05:06→10:21)
--- NOTE | 2020-12-30 06:27 | NUR ---
MS RN NOTES PATIENT IN BED, AWAKE, A/O X4, VERBALLY RESPONSIVE, NO SIGNS OF ACUTE DISTRESS NOTED. REMAINS ON ROOM AIR, BREATHING EVEN AND UNLABORED. SL ON RIGHT WRIST G#20 PATENT AND INTACT.SAFETY MEASURES PROVIDED. BED LOCKED AND IN LOWEST POSITION, SR UP X2, CALL LIGHT AND TABLE PLACED WITHIN EASY REACH. WILL ENDORSE CARE TO DAY SHIFT NURSE.
[2020-12-30 06:59] LABS: BASOPHILS # (AUTO) 0.1 K/uL (0.0-0.2); BASOPHILS % (AUTO) 0.7 % (0.0-2.0); CALCIUM, SERUM 8.1 mg/dL (8.5-10.1); EOSINOPHILS % (AUTO) 0.9 % (0.0-6.0); HEMATOCRIT 37 % (39-51); HEMOGLOBIN 12.4 g/dL (13.5-17.5); LYMPHOCYTES # (AUTO) 1.7 K/uL (0.8-4.8); LYMPHOCYTES % (AUTO) 22.3 % (20.0-44.0); MAGNESIUM 2.2 mg/dL (1.8-2.4); MEAN CORPUSCULAR HGB CONC 34 g/dl (31.0-36.0); MEAN CORPUSCULAR VOLUME 95 fL (80-96); MONOCYTES # (AUTO) 0.8 K/uL (0.1-1.30); MONOCYTES % (AUTO) 10.6 % (2.0-12.0); NEUTROPHILS % (AUTO) 65.5 % (43.0-81.0); PLATELET COUNT (AUTO) 424 K/uL (150-450); POTASSIUM 3.5 mmol/L (3.5-5.1); RED BLOOD CELL COUNT(AUTO) 3.86 MIL/uL (4.5-6.0); WHITE BLOOD COUNT (AUTO) 7.7 K/uL (4.3-11.0)
--- NOTE | 2020-12-30 07:36 | NUR ---
MS RN OPENING NOTES RECEIVED PATIENT IN BED, AWAKE, A/O X4., PATIENT ON ROOM AIR; BREATHING EVEN AND UNLABORED AT THIS TIME; NO SOB NOTED. NO COMPLAINS OF PAIN. IV ACCESS AT R WRIST G #20; PRESENT AND INTACT. SAFETY PRECAUTIONS IN PLACE; BED IN LOW POSITION AND LOCKED, RAILS UP X2, CALL LIGHT WITHIN REACH. WILL CONTINUE TO MONITOR PATIENT.
[2020-12-30 08:00] VITALS: BP 133/90
[2020-12-30] MEDS: FLUOXETINE HCL 20 MG CAPSULE PO SCH (08:18)
[2020-12-30] MEDS: BENAZEPRIL HCL 20 MG TABLET PO SCH (08:18)
[2020-12-30 08:19] VITALS: BP 133/90
[2020-12-30] MEDS: AMLODIPINE BESYLATE 10 MG TABLET PO SCH (08:19)
[2020-12-30] MEDS: CARVEDILOL 6.25 MG TABLET PO SCH (08:20)
[2020-12-30] MEDS ORDERED: DOXY100C2 PO (14:01)
[2020-12-30] MEDS ORDERED: AMOX-430 PO (14:01)
--- NOTE | 2020-12-30 14:46 | NUR ---
RECEPTIONIST CLERK NOTES PATIENT DISCHARGED HOME IN STABLE CONDITION. A/O X4. ABLE TO MAKE NEEDS KNOWN. VITAL SIGNS TAKEN, STABLE. ALL BELONGINGS ACCOUNTED FOR, ALL FORMS SIGNED. HEALTH TEACHINGS AND DISCHARGE INSTRUCTIONS PROVIDED TO PATIENT WITH VERBALIZATION OF UNDERSTANDING. IV ACCESS ON RIGHT WRIST REMOVED, NO ACTIVE BLEEDING NOTED, PRESSURE DRESSING APPLIED TO SITE. HOSPITAL [facility] REMOVED. PATIENT LEFT UNIT @1435, PICKED UP BY VIA PRIVATE CAR.
== END 2020-12-30 14:45 | disposition home or self-care (01) | DRG 602 ==
LOC: ER 09:48 → MED 13:59
PROVIDERS: ADMIT Nurse Practitioner Family; ATTEND Nurse Practitioner Family
DX: L03.115 Cellulitis of right lower limb (principal); N17.0 Acute kidney failure with tubular necrosis; E87.1 Hypo-osmolality and hyponatremia; E87.6 Hypokalemia; I10 Essential (primary) hypertension; Z79.899 Other long term (current) drug therapy; E83.42 Hypomagnesemia; E78.5 Hyperlipidemia, unspecified; F17.200 Nicotine dependence, unspecified, uncomplicated; R26.9 Unspecified abnormalities of gait and mobility; S81.811A Laceration without foreign body, right lower leg, initial encounter; X58.XXXA Exposure to other specified factors, initial encounter; Y92.9 Unspecified place or not applicable; Z85.46 Personal history of malignant neoplasm of prostate; F32.A Depression, unspecified; Z90.79 Acquired absence of other genital organ(s); L02.415 Cutaneous abscess of right lower limb
CPT/HCPCS: 36415; 71045-TC; 73700-TC; 73718-TC; 76770-TC; 80048-TC; 80061-TC; 80202-TC; 81001; 82378; 82570-TC; 83540-TC; 83605-TC; 83735-TC; 85025-TC; 85610-TC; 86803; 87040-TC; 87081-TC; 87806; 93971-TC; C9803; G0378; J0696; J1650; J2270; J2405; J2543; J3370; J3490; J7030; J7050; J7060; Q9967